=== PATIENT | male | born 1940 | race African-American/Black ===

== ENCOUNTER 2021-10-29 23:09 | Emergency (ER) | payer OTHER, BC ==
[2021-10-29 23:36] VITALS: BP 141/84; PULSE 69; TEMP 98.2; BMI 21.3
[2021-10-29] MEDS ORDERED: CEPHALEXIN 250 MG/5 ML ORAL SUSPENSION PO ONE (23:36)
[2021-10-29 23:49] LABS: EPITHELIAL CELLS FEW /hpf
== END 2021-10-30 00:16 | disposition home or self-care (01) ==
LOC: FER 23:09
DX: N39.498 Other specified urinary incontinence (principal); N39.43 Post-void dribbling
CPT/HCPCS: 81003; 81015; 87086; 87186; 99283-25